=== PATIENT | male | born 2000 | race Hispanic/Latino ===

== ENCOUNTER 2024-10-09 12:20 | Emergency (ER) | payer SELFPAY ==
[~2024-10-09] VITALS: Ht 175.3 cm; Wt 81.6 kg
[2024-10-09 12:33] VITALS: PULSE 112; RESP 16; TEMP 98.3
[2024-10-09] MEDS ORDERED: SODIUM CHLORIDE FLUSH 10 ML SYR IV PRN (13:00)
[2024-10-09 13:06] LABS: INFLUENZA A AG NEGATIVE (NEGATIVE); INFLUENZA B AG NEGATIVE (NEGATIVE)
[2024-10-09 13:07] LABS: CORONAVIRUS COVID-19 AG NEGATIVE (NEGATIVE)
[2024-10-09] MEDS: KETOROLAC TROMETHAMINE 30 MG/ML VIAL IV STA (13:16)
[2024-10-09] MEDS: SODIUM CHLORIDE 0.9% 1000ML 1,000 ML IV ONE (13:17)
[2024-10-09 13:42] LABS: BASOPHILS % 0.3 % (0.0-1.0); EOSINOPHILS # (AUTO) 0.4 (0.0-0.4); EOSINOPHILS % 2.9 % (0.0-6.0); HEMATOCRIT 45.7 % (38.2-49.6); HEMOGLOBIN 16.2 g/dL (14.0-18.0); LYMPHOCYTES # (AUTO) 1.6 (1.0-3.2); LYMPHOCYTES % 10.9 % (18.0-39.1); MEAN CORPUSCULAR HEMOGLOBIN 29.3 pg (28-32); MEAN CORPUSCULAR HGB CONC 35.4 g/dL (31-35); MEAN CORPUSCULAR VOLUME 82.6 fL (81-99); MONOCYTES # (AUTO) 1.2 (0.2-0.8); MONOCYTES % 8.2 % (4.4-11.3); NEUTROPHILS # (AUTO) 11.1 (2.1-6.9); NEUTROPHILS % 77.3 % (38.7-80.0); PLATELET COUNT 323 x10e3/uL (140-360); RED BLOOD COUNT 5.53 x10e6/uL (4.3-5.7); RED CELL DISTRIBUTION WIDTH 12.5 % (11.7-14.4); WHITE BLOOD COUNT 14.38 x10e3/uL (4.8-10.8)
[2024-10-09 14:12] LABS: ALANINE AMINOTRANSFERASE 19 IU/L (0-55); ALBUMIN 4.2 g/dL (3.5-5.0); ALKALINE PHOSPHATASE 83 IU/L (40-150); ANION GAP 18.4 mmol/L (8-16); BILIRUBIN,TOTAL 1.1 mg/dL (0.2-1.2); BLOOD UREA NITROGEN 9 mg/dL (7-26); BUN/CREATININE RATIO 11 (6-25); CALCIUM 9.9 mg/dL (8.4-10.2); CARBON DIOXIDE 16 mmol/L (22-29); CHLORIDE 104 mmol/L (98-107); CREATININE, SERUM 0.84 mg/dL (0.72-1.25); EST GLOMERULAR FILTRATION RATE 124 ML/MIN (>=60); GLUCOSE 89 mg/dL (74-118); SODIUM 135 mmol/L (136-145); TOTAL PROTEIN 8.4 g/dL (6.5-8.1)
[2024-10-09 14:14] LABS: POTASSIUM 3.4 mmol/L (3.5-5.1)
[2024-10-09 14:25] LABS: TROPONIN I < 0.001 ng/mL (0-0.300)
[2024-10-09] MEDS ORDERED: NAPROXEN250 MG PO (14:53)
[2024-10-09 15:03] VITALS: BP 136/75; PULSE 78; RESP 18; TEMP 98.2; O2SAT 98
== END 2024-10-09 15:00 | disposition home or self-care (01) ==
LOC: ER 12:25
DX: R05.9 Cough, unspecified (principal); J06.9 Acute upper respiratory infection, unspecified; R07.89 Other chest pain; I45.10 Unspecified right bundle-branch block
CPT/HCPCS: 36415; 71045; 80053; 84484; 85025; 87428; 93005; 94760; 99284; J1885; J7030

== ENCOUNTER 2024-12-19 08:24 | Emergency (ER) | payer SELFPAY ==
[~2024-12-19] VITALS: Ht 175.3 cm; Wt 86.2 kg
[~2024-12-19 08:24] MED LIST: NAPROXEN250 MG PO
[2024-12-19 08:33] VITALS: PULSE 91; RESP 20; TEMP 97.8; O2SAT 99
[2024-12-19] MEDS: DIPHENHYDRAMINE HCL INJ 50 MG/ML VIAL IV ONE (09:15)
[2024-12-19] MEDS: SODIUM CHLORIDE 0.9% 1000ML 1,000 ML IV STA (09:16)
[2024-12-19] MEDS: METHYLPREDNISOLONE SOD SUCC 125 MG/2ML VIAL IV STA (09:16)
[2024-12-19] MEDS: FAMOTIDINE 20 MG/2 ML VIAL IV STA (09:16)
[2024-12-19] MEDS ORDERED: MEDROL4 M2 PO (11:20)
[2024-12-19 11:59] VITALS: BP 114/74; PULSE 99; RESP 18
== END 2024-12-19 11:52 | disposition home or self-care (01) ==
LOC: ER 08:28
DX: T78.3XXA Angioneurotic edema, initial encounter (principal); R01.1 Cardiac murmur, unspecified
CPT/HCPCS: 99283; J1200; J1308; J2919; J7030

== ENCOUNTER 2025-01-30 15:35 | Emergency (ER) | payer SELFPAY ==
[~2025-01-30] VITALS: Ht 175.3 cm; Wt 86.2 kg
[~2025-01-30 15:35] MED LIST changes: +MEDROL4 M2 PO
[2025-01-30 15:53] VITALS: PULSE 87; RESP 17; TEMP 98.4; O2SAT 100
== END 2025-01-30 16:42 | disposition home or self-care (01) ==
LOC: ER 15:55
DX: B37.42 Candidal balanitis (principal); R01.1 Cardiac murmur, unspecified; Z86.79 Personal history of other diseases of the circulatory system
CPT/HCPCS: 99282